=== PATIENT | female | born 1995 | race Two or more races ===

== ENCOUNTER 2017-06-28 10:20 | Emergency (ER) | payer OTHER ==
[2017-06-28 10:33] VITALS: BP 130/99; PULSE 87; TEMP 98.1; BMI 20.5
[2017-06-28] MEDS ORDERED: METOCLOPRAMIDE HCL INJECTION 10 MG/2 ML VIAL IVPUSH ONE (10:51)
[2017-06-28] MEDS ORDERED: SODIUM CHLORIDE 1,000 ML IV ONE (10:51)
--- NOTE | 2017-06-28 11:02 | PDOC ---
History of Present Illness - General Chief Complaint: Chest Pain Stated Complaint: CHEST TIGHTNESS Time Seen by Provider: 06/28/17 10:23 History Source: Patient Exam Limitations: No Limitations - History of Present Illness Initial Comments: 06/28/17 10:57 21y F no significantp mhx presents with chest tightness and palptiations. Pt states she was up last night late until around 5am, came home and went to sleep. Around 9am she woke up feeling some chest tightness and palpitations ( like her heart racing) and has been persistent. pt denies any sob, cough, hemptysis, any pleuritic nature to the pain, harrell/ cp with exertion, leg swelling , calf pain. pt also endorses mild diffuse pounding headache w/o any blurry vision, n/v, neck pain, trauma. no associated diarrhea, melena, bpr. pt is on control pills but n oother meds Past History - Past Medical History Allergies/Adverse Reactions: Allergies Allergy/AdvReac Type Severity Reaction Status Date / Time No Known Allergies Allergy Verified 06/28/17 10:21 Home Medications: Ambulatory Orders Norgestrel-Ethinyl Estradiol [Cryselle-28 Tablet] 1 each PO ASDIR tablet Other medical history: DENIES - Immunization History Immunization Up to Date: Yes - Psycho/Social/Smoking Cessation Hx Anxiety: No Suicidal Ideation: No Smoking History: Current some day smoker Have you smoked in the past 12 months: Yes Information on smoking cessation initiated: Yes 'Breaking Loose' booklet given: 06/28/17 Hx Alcohol Use: Yes (SOCIAL) Drug/Substance Use Hx: No Substance Use Type: None Review of Systems - Review of Systems Able to Perform ROS?: Yes Comments:: 06/28/17 11:00 Constitutional - no reported Fever, Chills, HEENT: no reported vision changes, sore throat Respiratory: no reported cough, sob, hemoptysis Cardiac: + palpitations, no reported chest pain, light headedness, leg swelling Abd/GI: no reported abd pain, nausea, vomiting, blood per rectum, melena, diarrhea : no reported dysuria, frequency, discharge Musculskelatal - no reported back pain, joint swelling skin - no reported bruising, erythema, rash neurological: +headache, no reported numbness, focal weakness, tingling, ataxia , hematologic: no reported anemia, easy bruising, easy bleeding *Physical Exam - Vital Signs Last Vital Signs Temp Pulse Resp BP Pulse Ox 98.1 F 87 17 130/99 100 06/28/17 10:21 06/28/17 10:21 06/28/17 10:21 06/28/17 11:20 06/28/17 10:21 - Physical Exam Comments: 06/28/17 11:01 GENERAL: The patient is awake, alert, and fully oriented, Nontoxic - in no acute distress. HEAD: Normocephalic, atraumatic. EYES: extraocular movements intact, sclera anicteric, conjunctiva clear. ENT: Normal voice, mildly dry mucous membranes. NECK: Normal range of motion, supple LUNGS: Breath sounds equal, clear to auscultation bilaterally. No wheezes, no rhonchi, no rales. HEART: Regular rate and rhythm, normal S1 and S2 without murmur, rub or gallop. ABDOMEN: Soft, nontender, normoactive bowel sounds. No guarding, no rebound. . No CVA tenderness EXTREMITIES: Normal range of motion, no edema. no calf tenderness NEUROLOGICAL: No facial assymetry, Normal speech, PSYCH: Normal mood, normal affect. SKIN: Warm, Dry, normal turgor, Heart Score/ECG Review - ECG Impressions Comment:: 06/28/17 11:20 Twelve-lead EKG was performed and reviewed by me. There is normal sinus rhythm with a normal rate. rate of 82 The axis is normal. The intervals are normal. RSR sugesting right venticular conduction delay There is normal R wave progression There are no ST or T wave abnormalities. ED Treatment Course - LABORATORY CBC & Chemistry Diagram: 06/28/17 11:15 06/28/17 11:15 - ADDITIONAL ORDERS Additional order review: Laboratory Results 06/28/17 06/28/17 11:15 11:15 Sodium 135 L Potassium 3.4 L Chloride 104 Carbon Dioxide 24 Anion Gap 7 L BUN 10 Creatinine 0.6 Creat Clearance w eGFR > 60 Random Glucose 88 Calcium 8.9 Total Bilirubin 0.5 D AST 18 ALT 11 Alkaline Phosphatase 37 Total Protein 7.0 Albumin 4.1 Urine Color Yellow Urine Appearance Clear Urine pH 5.5 D Ur Specific [place] 1.025 Urine Protein Trace Urine Glucose (UA) Negative Urine Ketones Negative Urine Blood Negative Urine Nitrite Negative Urine Bilirubin Negative Urine Urobilinogen 0.2 Ur Leukocyte Esterase Negative Urine HCG, Qual Negative 06/28/17 11:15 RBC 4.01 MCV 88.5 MCHC 34.8 RDW 12.5 MPV 8.9 Neutrophils % 59.2 Lymphocytes % 28.6 Monocytes % 8.7 Eosinophils % 2.7 Basophils % 0.8 - Medications Given in the ED: ED Medications Discontinued Medications Generic Name Dose Route Start Last Admin Trade Name Lizzie PRN Reason Stop Dose Admin Sodium Chloride 1,000 mls @ 1,000 mls/hr 06/28/17 10:51 06/28/17 11:20 Normal Saline - IV 06/28/17 11:50 1,000 mls/hr .Q1H ONE Administration Metoclopramide HCl 10 mg 06/28/17 10:51 06/28/17 11:20 Reglan Injection - IVPUSH 06/28/17 10:52 10 mg ONCE ONE Administration Medical Decision Making - Medical Decision Making 06/28/17 11:01 suspect mild dehdyration will ck basic labs to r/o anemia, metabolc derangement, ekg to screen for arrhthma no sob/hemopysis, do not think PE likely will give fluids,r eglan for headache will reassess 06/28/17 12:47 pt feeling improved labs reviewed, noted for mildly low potassium, will hve pt eat more potassium containing foods and have them follow up with pMD for it resolution of palptiations/headache will dc with pmd fu return precautions were discussed I discussed the physical exam findings, ancillary test results and final diagnoses with the patient. I answered all of the patient's questions. The patient was satisfied with the care received and felt comfortable with the discharge plan and treatment plan. The patient will call their primary care physician within 24 hours to arrange follow-up and will return to the Emergency Department with any new, persistent or worsening symptoms. *DC/Admit/Observation/Transfer Diagnosis at time of Disposition: Palpitations Headache Qualifiers: Headache type: tension-type Headache chronicity pattern: acute headache Intractability: not intractable Qualified Code(s): G44.209 - Tension-type headache, unspecified, not intractable - Discharge Dispostion Disposition: HOME Condition at time of disposition: Improved Admit: No - Referrals Referrals: Fatimah Montiel MD [Staff Physician] - - Patient Instructions Printed Discharge Instructions: DI for Palpitations Additional Instructions: Return to the emergency department immediately with ANY new, persistent or worsening symptoms. Make sure you are stying well hydrated. You MUST call and follow up with your doctor tomorrow for further evaluation of your symptoms. Results were discussed with you. Please make sure your doctor reviews the results of your emergency evaluation. Print Language: NIUEAN
[2017-06-28 11:31] LABS: BASOPHIL 0.8 % (0-2.0); EOSINOPHIL 2.7 % (0-4.5); MCH 30.8 pg (25.7-33.7); MCHC 34.8 g/dl (32.0-36.0); MEAN CELL VOLUME 88.5 fl (80-96); MEAN PLT VOLUME 8.9 fl (7.5-11.1); NEUTROPHILS 59.2 % (42.8-82.8); PLATELET COUNT 233 K/MM3 (134-434); RDW 12.5 % (11.6-15.6); WHITE BLOOD COUNT 7.5 K/mm3 (4.0-10.8)
[2017-06-28 11:48] LABS: PH,URINE 5.5 (4.5-8); URINE APPEARANCE Clear; URINE BILIRUBIN Negative (NEGATIVE); URINE BLOOD Negative (NEGATIVE); URINE GLUCOSE (UA) Negative (NEGATIVE); URINE KETONE Negative (NEGATIVE); URINE LEUK ESTERASE Negative (NEGATIVE); URINE NITRITE Negative (NEGATIVE); URINE PROTEIN Trace (NEGATIVE); URINE UROBILINOGEN 0.2 (0.2-1.0)
[2017-06-28 11:49] LABS: URINE COLOR YELLOW
[2017-06-28 11:52] LABS: ALBUMIN 4.1 g/dl (3.5-5.0); ALK PHOS 37 U/L (32-92); ANION GAP 7 (8-16); BILIRUBIN,TOTAL 0.5 mg/dl (0.2-1.0); CALCIUM 8.9 mg/dl (8.4-10.2); CO2 24 mmol/L (22-28); CREATININE 0.6 mg/dl (0.6-1.3); GLUCOSE,RANDOM 88 mg/dl (74-106); SGOT/AST 18 U/L (10-42); SGPT/ALT 11 U/L (10-40)
--- NOTE | 2017-06-28 14:17 | EKG ---
Test Reason : Blood Pressure : / mmHG Vent. Rate : 082 BPM Atrial Rate : 082 BPM P-R Int : 128 ms QRS Dur : 108 ms QT Int : 386 ms P-R-T Axes : 065 073 031 degrees QTc Int : 450 ms NORMAL SINUS RHYTHM WITH SINUS ARRHYTHMIA RSR' OR QR PATTERN IN V1 SUGGESTS RIGHT VENTRICULAR CONDUCTION DELAY BORDERLINE ECG NO PREVIOUS ECGS AVAILABLE Confirmed by NANCY BRANDT MD ([id number]) on 06/28/2017 2:17:07 PM Referred By: JENIFER PEARL Confirmed By:NANCY BRANDT MD
== END 2017-06-28 12:58 | disposition home or self-care (01) ==
LOC: FER 10:20
PROC: 3E033GC Introduction of Other Therapeutic Substance into Peripheral Vein, Percutaneous Approach (ICD-10-PCS; principal; 2017-06-28)
PROC: 3E0337Z Introduction of Electrolytic and Water Balance Substance into Peripheral Vein, Percutaneous Approach (ICD-10-PCS; 2017-06-28)
DX: G44.209 Tension-type headache, unspecified, not intractable (principal); R00.2 Palpitations; F17.210 Nicotine dependence, cigarettes, uncomplicated
CPT/HCPCS: 36415; 80053; 81003; 84703; 85025; 93005; 96361; 96374; 99283-25